=== PATIENT | female | born 1970 | race Caucasian/White ===

== ENCOUNTER 2022-08-29 21:49 | Emergency (ER) | payer BC ==
[2022-08-30 01:09] LABS: #Basophils 0.1 thou/uL (0.0-0.2); #Eosinphils 0.3 thou/uL (0.0-0.7); #Monocytes 0.7 thou/uL (0.11-0.59); #Neutrophils 5.5 thou/uL (1.40-6.50); %Basophils 0.6 % (0.0-1.0); %Lymphocytes 27.3 % (21.0-51.0); %Monocytes 7.6 % (0.0-10.0); %Neutrophils 61.3 % (42.0-75.0); Hemoglobin 8.7 g/dL (12.0-16.0); Mean Corpuscular HGB CONC 32.7 g/dL (32.0-36.0); Mean Corpuscular Hemoglobin 29.7 pg (27.0-31.0); Mean Corpuscular Volume 90.8 fl (78.0-98.0); Mean Platelet Volume 9.6 fL (7.4-10.4); Platelet Count 267 10x3/uL (130-400); RBC Distribution Width 12.8 % (11.5-14.5); Red Blood Cell (RBC) Count 2.93 mill/uL (4.20-5.40); White Blood Cell (WBC) Count 8.9 10x3/uL (4.8-10.8)
[2022-08-30 01:30] LABS: Vancomycin, Random 27.6 ug/mL (See Comment)
[2022-08-30 01:34] LABS: ALT (SGPT) 19 U/L (8-55); AST (SGOT) 27 U/L (5-34); Albumin 3.6 g/dL (3.5-5.0); Alkaline Phosphatase 94 U/L (40-110); Anion Gap 12 mmol/L (10-20); BUN (Urea Nitrogen) 19 mg/dL (7.0-18.7); Bilirubin, Total 0.3 mg/dL (0.2-1.2); CK (CPK) 32 U/L (29-168); Calc. Creatinine Clearance 0 mL/min (70-130); Calcium 9.1 mg/dL (7.8-10.44); Carbon Dioxide 26 mmol/L (22-29); Chloride 106 mmol/L (98-107); Estimated GFR 33; Globulin 3.2 g/dL (2.4-3.5); Glucose 145 mg/dL (70-105); Lipase 35 U/L (8-78); Potassium 4.4 mmol/L (3.5-5.1); Protein, Total 6.8 g/dL (6.0-8.3); Sodium 140 mmol/L (136-145)
== END 2022-08-30 02:06 | disposition home or self-care (01) ==
LOC: ERS 21:49
DX: R60.0 Localized edema (principal); E10.9 Type 1 diabetes mellitus without complications; Z79.82 Long term (current) use of aspirin
CPT/HCPCS: 36415; 80053; 80202; 82550; 83690; 83880; 84484; 85025; 93970

== ENCOUNTER 2022-10-24 15:55 | Emergency (ER) | payer BC ==
[2022-10-24 17:12] LABS: #Eosinphils 0.2 thou/uL (0.0-0.7); #Monocytes 0.4 thou/uL (0.11-0.59); #Neutrophils 3.9 thou/uL (1.40-6.50); %Basophils 0.6 % (0.0-1.0); %Eosinophils 2.8 % (0.0-10.0); %Lymphocytes 27.8 % (21.0-51.0); %Monocytes 6.9 % (0.0-10.0); %Neutrophils 61.4 % (42.0-75.0); Hematocrit 26.3 % (36.0-47.0); Hemoglobin 8.8 g/dL (12.0-16.0); Mean Corpuscular HGB CONC 33.5 g/dL (32.0-36.0); Mean Corpuscular Hemoglobin 28.9 pg (27.0-31.0); Mean Corpuscular Volume 86.5 fl (78.0-98.0); Mean Platelet Volume 10.3 fL (7.4-10.4); Platelet Count 247 10x3/uL (130-400); RBC Distribution Width 12.8 % (11.5-14.5); Red Blood Cell (RBC) Count 3.04 mill/uL (4.20-5.40); White Blood Cell (WBC) Count 6.3 10x3/uL (4.8-10.8)
[2022-10-24 17:35] LABS: Troponin I Less than 0.010 ng/mL (< 0.028)
[2022-10-24 17:49] LABS: ALT (SGPT) 41 U/L (8-55); AST (SGOT) 33 U/L (5-34); Alkaline Phosphatase 118 U/L (40-110); Anion Gap 12 mmol/L (10-20); BUN (Urea Nitrogen) 45 mg/dL (7.0-18.7); Bilirubin, Total 0.3 mg/dL (0.2-1.2); Calc. Creatinine Clearance 0 mL/min (70-130); Calcium 9.4 mg/dL (7.8-10.44); Carbon Dioxide 25 mmol/L (22-29); Chloride 104 mmol/L (98-107); Estimated GFR 27; Globulin 3.2 g/dL (2.4-3.5); Glucose 115 mg/dL (70-105); Potassium 4.1 mmol/L (3.5-5.1); Protein, Total 7.2 g/dL (6.0-8.3); Sodium 137 mmol/L (136-145)
== END 2022-10-24 19:17 | disposition home or self-care (01) ==
LOC: ERS 15:55
DX: D64.9 Anemia, unspecified (principal); E10.9 Type 1 diabetes mellitus without complications; Z79.82 Long term (current) use of aspirin; Z79.4 Long term (current) use of insulin; Z79.899 Other long term (current) drug therapy
CPT/HCPCS: 36415; 80053; 83605; 84484; 85025; 87040; 87086; 93005

== ENCOUNTER 2022-11-11 16:09 | Outpatient (CLI) | payer BC ==
[2022-11-11 17:57] LABS: #Eosinphils 0.2 10x3/uL (0.0-0.5); #Monocytes 0.6 10x3/uL (0.0-1.1); #Neutrophils 4.2 10x3/uL (1.5-8.4); %Basophils 0.4 % (0.0-2.0); %Eosinophils 2.1 % (0.0-6.0); %Lymphocytes 30.9 % (18.0-47.0); %Monocytes 8.3 % (0.0-10.0); Hematocrit 25.8 % (34.9-44.5); Hemoglobin 8.5 g/dL (12.0-15.5); Mean Corpuscular HGB CONC 32.9 g/dL (32.0-36.0); Mean Corpuscular Hemoglobin 29.1 pg (27.0-33.0); Mean Corpuscular Volume 88.4 fl (81.6-98.3); Mean Platelet Volume 10.6 fl (7.4-10.4); Platelet Count 242 10x3/uL (150-450); RBC Distribution Width 13.6 % (11.5-14.5); Red Blood Cell (RBC) Count 2.92 10x6/uL (3.90-5.03); White Blood Cell (WBC) Count 7.3 10x3/uL (3.5-10.5)
== END 2022-11-11 16:10 | disposition home or self-care (01) ==
LOC: LABBT 16:09
PROVIDERS: ATTEND Orthopaedic Surgery Hand Surgery
DX: Z01.812 Encounter for preprocedural laboratory examination (principal); G56.02 Carpal tunnel syndrome, left upper limb; G56.12 Other lesions of median nerve, left upper limb
CPT/HCPCS: 82306; 85025

== ENCOUNTER 2022-11-15 06:03 | Day surgery (SDC) | payer BC ==
[2022-11-11 16:55] VITALS: BMI 27.0
[2022-11-15] MEDS ORDERED: Bacitracin Zinc Ointment 30 gm TUBE ONE (06:11)
[2022-11-15] MEDS ORDERED: Bupivacaine PF 0.5% 30 ML VIAL ONE (06:11)
[2022-11-15] MEDS ORDERED: Midazolam HCl 2 mg/2 ml Vial ONE (06:30)
[2022-11-15] MEDS ORDERED: fentaNYL PF 100 MCG/2 ML SYRINGE ONE (06:31)
[2022-11-15] MEDS ORDERED: Sodium Chloride 0.9% 100 ML ONE (07:08)
[2022-11-15] MEDS ORDERED: CEFAZOLIN 2 GM VIAL ONE (07:08)
[2022-11-15] MEDS ORDERED: Lidocaine 1% PF 5 ML VIAL ONE (07:23)
[2022-11-15] MEDS ORDERED: PROPOFOL 200 MG/20 ML VIAL ONE (07:23)
[2022-11-15] MEDS ORDERED: Ondansetron PF 4 MG/2 ML Vial ONE (07:23)
[2022-11-15] MEDS ORDERED: Ketorolac Tromethamine 30 MG/ML VIAL ONE (09:13)
[2022-11-15] MEDS ORDERED: hydrALAZINE 20 MG/ML VIAL ONE (09:21)
[2022-11-15] MEDS ORDERED: fentaNYL 50 mcg/mL 1 mL Vial ONE (10:21)
[2022-11-15] MEDS ORDERED: HYDROcodone/Acetaminophen 5/325 mg Tablet ONE (10:58)
[2022-11-15] MEDS ORDERED: Morphine 2 MG/ML VIAL ONE (11:04)
== END 2022-11-15 12:00 | disposition home or self-care (01) ==
LOC: SDC 06:03
PROVIDERS: ATTEND Orthopaedic Surgery Hand Surgery
PROC: 01N50ZZ Release Median Nerve, Open Approach (ICD-10-PCS; principal; 2022-11-15)
DX: G56.02 Carpal tunnel syndrome, left upper limb (principal); G56.12 Other lesions of median nerve, left upper limb; G56.82 Other specified mononeuropathies of left upper limb; E11.9 Type 2 diabetes mellitus without complications; E78.5 Hyperlipidemia, unspecified; Z98.890 Other specified postprocedural states; Z88.2 Allergy status to sulfonamides; Z79.899 Other long term (current) drug therapy
CPT/HCPCS: 36416; J0360; J1885; J2250; J2272; J2405; J2704; J3010; J3490; S0020

== ENCOUNTER 2023-03-03 15:03 | Outpatient (CLI) | payer BC ==
[2023-03-03 16:12] LABS: #Eosinphils 0.2 10x3/uL (0.0-0.5); #Monocytes 0.6 10x3/uL (0.0-1.1); #Neutrophils 5.2 10x3/uL (1.5-8.4); %Basophils 0.5 % (0.0-2.0); %Eosinophils 1.9 % (0.0-6.0); %Lymphocytes 31.3 % (18.0-47.0); %Monocytes 7.1 % (0.0-10.0); Hematocrit 29.7 % (34.9-44.5); Hemoglobin 9.7 g/dL (12.0-15.5); Mean Corpuscular HGB CONC 32.7 g/dL (32.0-36.0); Mean Corpuscular Hemoglobin 28.4 pg (27.0-33.0); Mean Corpuscular Volume 86.8 fl (81.6-98.3); Mean Platelet Volume 10.6 fl (7.4-10.4); Platelet Count 202 10x3/uL (150-450); RBC Distribution Width 12.8 % (11.5-14.5); Red Blood Cell (RBC) Count 3.42 10x6/uL (3.90-5.03); White Blood Cell (WBC) Count 8.8 10x3/uL (3.5-10.5)
[2023-03-03 16:28] LABS: ALT (SGPT) 20 U/L (8-55); AST (SGOT) 27 U/L (5-34); Albumin 4.1 g/dL (3.5-5.0); Alkaline Phosphatase 79 U/L (40-110); Anion Gap 15 mmol/L (10-20); BUN (Urea Nitrogen) 39 mg/dL (9.8-20.1); Bilirubin, Total 0.5 mg/dL (0.2-1.2); Calc. Creatinine Clearance 0 mL/min (70-130); Calcium 9.3 mg/dL (7.8-10.44); Carbon Dioxide 22 mmol/L (22-29); Chloride 108 mmol/L (98-107); Estimated GFR 29; Globulin 2.4 g/dL (2.4-3.5); Potassium 4.5 mmol/L (3.5-5.1); Protein, Total 6.5 g/dL (6.0-8.3); Sodium 140 mmol/L (136-145)
[2023-03-03 16:39] LABS: Glucose 51 mg/dL (70-105)
== END 2023-03-03 15:04 | disposition home or self-care (01) ==
LOC: LABBT 15:03
PROVIDERS: ATTEND Orthopaedic Surgery Hand Surgery
DX: Z01.812 Encounter for preprocedural laboratory examination (principal); G56.01 Carpal tunnel syndrome, right upper limb
CPT/HCPCS: 80053; 85025

== ENCOUNTER 2023-03-07 09:05 | Day surgery (SDC) | payer BC ==
[2023-03-03 15:32] VITALS: BMI 27.3
[2023-03-07] MEDS ORDERED: Bacitracin Zinc Ointment 30 gm TUBE ONE (12:31)
[2023-03-07] MEDS ORDERED: Bupivacaine PF 0.5% 30 ML VIAL ONE (12:31)
[2023-03-07] MEDS ORDERED: Ondansetron PF 4 MG/2 ML Vial ONE (12:40)
[2023-03-07] MEDS ORDERED: Lidocaine 1% PF 5 ML VIAL ONE (12:40)
[2023-03-07] MEDS ORDERED: PROPOFOL 40 ML ONE (12:40)
[2023-03-07] MEDS ORDERED: fentaNYL 50 mcg/mL 1 mL Vial ONE (12:41)
[2023-03-07] MEDS ORDERED: diphenhydrAMINE 50 MG/ML VIAL ONE (12:43)
[2023-03-07] MEDS ORDERED: Midazolam HCl 2 mg/2 ml Vial ONE (12:51)
[2023-03-07] MEDS ORDERED: Sodium Chloride 0.9% 100 ML ONE (12:52)
[2023-03-07] MEDS ORDERED: CEFAZOLIN 2 GM VIAL ONE (12:52)
== END 2023-03-07 16:32 | disposition home or self-care (01) ==
LOC: SDC 09:05
PROVIDERS: ATTEND Orthopaedic Surgery Hand Surgery
PROC: 01N50ZZ Release Median Nerve, Open Approach (ICD-10-PCS; principal; 2023-03-07)
DX: G56.01 Carpal tunnel syndrome, right upper limb (principal); E78.5 Hyperlipidemia, unspecified; E10.22 Type 1 diabetes mellitus with diabetic chronic kidney disease; I12.9 Hypertensive chronic kidney disease with stage 1 through stage 4 chronic kidney disease, or unspecified chronic kidney disease; N18.4 Chronic kidney disease, stage 4 (severe); E10.40 Type 1 diabetes mellitus with diabetic neuropathy, unspecified; Z90.89 Acquired absence of other organs; F10.90 Alcohol use, unspecified, uncomplicated; F32.A Depression, unspecified; Z79.4 Long term (current) use of insulin; Z79.899 Other long term (current) drug therapy
CPT/HCPCS: 36416; J1200; J2250; J2405; J2704; J3010; J3490; S0020